=== PATIENT | female | born 2000 | race Caucasian/White ===

== ENCOUNTER 2018-06-30 13:56 | Emergency (ER) | payer OTHER, MEDICAID, SELFPAY ==
--- NOTE | 2018-06-30 13:57 | ED.ASTHMA ---
HPI - Asthma <RICHARD Cortez - Last Filed: 06/30/18 22:32> General Chief Complaint: Asthma Stated Complaint: ASTHMA ATTACK Time Seen by Provider: 06/30/18 13:57 Source: patient Mode of arrival: ambulatory Limitations: no limitations History of Present Illness HPI Narrative: 18-year-old female with history of asthma is an everyday smoker here for complaint of having increased wheezing over the past few days. She states she has had cold-like symptoms with some nasal congestion and sore throat which has increased her wheezing. She reports that she is out of her albuterol inhaler and also nebulizer treatment. She denies any shortness of breath. She denies any distress. No fevers or chills. She denies any other current complaints. MD complaint: asthma attack Related Data Previous Rx's Medication Instructions Recorded albuterol sulfate 3 ml INH SEE INSTRUCTIONS #1 box 06/30/18 albuterol sulfate [Ventolin HFA] 1 puff INHALATION Q4-6H PRN #30 day 06/30/18 Allergies Allergy/AdvReac Type Severity Reaction Status Date / Time morphine Allergy Mild ITCHING Verified 06/30/18 14:04 Review of Systems <RICHARD Cortez - Last Filed: 06/30/18 22:32> Constitutional Denies chills, Denies fever(s), Denies lethargy and Denies weakness Eyes Denies change in vision, Denies eye discharge, Denies irritation and Denies loss of vision ENT Ears, Nose, Mouth, and Throat: Denies change in voice, Denies neck pain, Denies sore throat and Denies throat swelling Cardiovascular Denies chest pain, Denies irregular heart rhythm, Denies lightheadedness, Denies palpitations and Denies orthopnea Respiratory Denies wheezing Comments: Wheezing Gastrointestinal Gastrointestinal: Denies abdominal pain, Denies change in bowel habits, Denies diarrhea, Denies nausea and Denies vomiting Genitourinary Denies hematuria, Denies flank pain, Denies urinary incontinence and Denies urinary urgency Musculoskeletal Denies neck pain Integumentary/Breasts Denies pruritus, Denies erythema, Denies rash and Denies wounds Neurologic Denies confusion, Denies loss of vision and Denies weakness Psychiatric Denies anxiety, Denies confusion, Denies depression, Denies homicidal ideation and Denies suicidal ideation Endocrine Denies palpitations Hematologic/Lymphatic Denies easy bruising Allergic/Immunologic Denies urticaria, Denies throat swelling and Denies wheezing Exam <RICHARD Cortez - Last Filed: 06/30/18 22:32> Initial Vital Signs Initial Vital Signs: Vital Signs Temperature 98.4 F 06/30/18 14:02 Pulse Rate 84 06/30/18 14:02 Respiratory Rate 20 06/30/18 14:02 Blood Pressure 118/74 06/30/18 14:02 Pulse Oximetry 100 06/30/18 14:02 Const General: cooperative and well developed Nutritional Appearance: well nourished Orientation: alert, awake, oriented x3 and not confused HENMT Ears: external ears normal and TM's normal bilaterally Mouth: oral mucosae normal, oropharynx normal and moist mucous membranes Eyes Conjunctivae: conjunctivae normal Sclera: sclerae normal Pupils: PERRL EOM: EOM intact bilaterally Resp Effort & Inspection: normal respiratory effort, able to speak in complete sentences, no respiratory distress and no use of accessory muscles Auscultation: clear to auscultation bilaterally, no rales, no rhonchi and wheezes inspiratory wheezes, lower bilaterally and upper bilaterally Cardio Rate: regular rate Rhythm: regular rhythm Heart Sounds: no click, no gallops, no murmurs and no rubs Skin General: no rashes or lesions noted, No jaundice and No petechiae Neuro General: alert, oriented x3, gait normal and no focal motor deficits Speech: speech normal <Micheline Rodríguez DO - Last Filed: 07/01/18 18:38> Initial Vital Signs Initial Vital Signs: Vital Signs Temperature 98.4 F 06/30/18 14:02 Pulse Rate 84 06/30/18 14:02 Respiratory Rate 20 06/30/18 14:02 Blood Pressure 118/74 06/30/18 14:02 Pulse Oximetry 100 06/30/18 14:02 Course <RICHARD Cortez - Last Filed: 06/30/18 22:32> Orders Ordered: Discontinued Medications Albuterol/Ipratropium (Duoneb) 3 ml INH NOW ONE Stop: 06/30/18 14:10 Last Admin: 06/30/18 14:25 Dose: 3 ml Vital Signs - 8 hr 06/30/18 14:02 Temperature 98.4 F Pulse Rate 84 Respiratory Rate 20 Blood Pressure 118/74 Pulse Oximetry 100 <Micheline Rodríguez DO - Last Filed: 07/01/18 18:38> Orders Ordered: Discontinued Medications Albuterol/Ipratropium (Duoneb) 3 ml INH NOW ONE Stop: 06/30/18 14:10 Last Admin: 06/30/18 14:25 Dose: 3 ml Vital Signs - 8 hr 06/30/18 14:02 Temperature 98.4 F Pulse Rate 84 Respiratory Rate 20 Blood Pressure 118/74 Pulse Oximetry 100 MDM - Asthma <Nadir BrightRICHARD white - Last Filed: 06/30/18 22:32> [facility] Narrative Medical decision making narrative: Sinus symptoms present as as a mild exacerbation secondary to a viral illness. She was given a DuoNeb treatment in the emergency room which helped her symptoms. She is in no acute distress. Her refills for albuterol inhaler and nebulizer treatment has been provided. Follow up with primary care provider. Return emergency room for any worsening symptoms. Discharge Plan Departure Patient Disposition: Home Clinical Impression: Asthma attack Discharge Date/Time: 06/30/18 14:58 Interventions: ED Discharge Assessment Last Done: 06/30/18 14:57 Instructions: DI for Asthma -- Adult Activity Restrictions/Additional Instructions: Signs and symptoms presents as asthma exacerbation secondary to a viral illness. You were given a nebulizer treatment in the emergency room which help with her wheezing. Refills for albuterol inhaler and nebulizers are placed use as directed. Follow up with her primary care provider. Return emergency room for any worsening symptoms. Prescriptions: Continue albuterol sulfate 2.5 MG/3 ML solution for nebulization 3 ml INH SEE INSTRUCTIONS Qty: 1 RF: 6 albuterol sulfate [Ventolin HFA] 90 mcg/actuation HFA aerosol inhaler 1 puff INHALATION Q4-6H PRN (Reason: asthma) Qty: 30 RF: 0 Referrals: Nicole Burden MD [Physician] - <Micheline Rodríguez DO - Last Filed: 07/01/18 18:38> Cosign ED Attending Cosignature Attestation: I was immediately available in the department for consultation. Documentation has been reviewed. I agree with assessment and plan.
[2018-06-30 14:02] VITALS: BP 118/74; PULSE 84; RESP 20; TEMP 36.9; O2SAT 100; BMI 25.3
[2018-06-30] MEDS: ALBUTEROL/IPRATROPIUM 3 ML AMPUL INH (14:25)
== END 2018-06-30 14:58 | disposition home or self-care (01) ==
PROVIDERS: Emergency Provider Nurse Practitioner Family
DX: J45.901 Unspecified asthma with (acute) exacerbation (principal)
CPT/HCPCS: 99282

== ENCOUNTER → 2018-07-08 16:29 | Outpatient (CLI) | payer OTHER, MEDICAID, SELFPAY ==
[2018-07-08 21:54] LABS: Urine N gonorrhoeae NOT DETECTED
[2018-07-08 21:55] LABS: Urine Chlamydia NOT DETECTED
== END ==
PROVIDERS: PCP Specialist; Visit Provider Specialist
DX: Z11.3 Encounter for screening for infections with a predominantly sexual mode of transmission (principal)
CPT/HCPCS: 87491; 87591

== ENCOUNTER → 2018-12-14 16:35 | Outpatient (CLI) | payer OTHER, MEDICAID, SELFPAY | PROVIDERS: PCP Physician Assistant; Visit Provider Nurse Practitioner | DX: L98.9 Disorder of the skin and subcutaneous tissue, unspecified (principal) | CPT/HCPCS: 87252 ==

== ENCOUNTER → 2019-02-23 16:38 | Outpatient (CLI) | payer OTHER, MEDICAID, SELFPAY | PROVIDERS: PCP Physician Assistant; Visit Provider Physician Assistant | DX: R30.0 Dysuria (principal); R39.15 Urgency of urination | CPT/HCPCS: 87086 ==

== ENCOUNTER 2019-05-31 23:21 | Emergency (ER) | payer OTHER, MEDICAID, SELFPAY ==
[2019-05-31] MEDS: ALBUTEROL/IPRATROPIUM 3 ML AMPUL INH (23:33)
[2019-05-31 23:37] VITALS: BP 133/88; PULSE 93; RESP 18; TEMP 36.6; O2SAT 98
[2019-05-31 23:38] VITALS: BP 112/95; PULSE 93; RESP 18; TEMP 36.6; O2SAT 98
[2019-05-31] MEDS: predniSONE 20 MG TABLET 40 MG PO (23:47)
[2019-05-31] MEDS: ALBUTEROL HFA PREPACK 1 BOX MISC (23:47)
--- NOTE | 2019-05-31 23:49 | DI.RAD.S_ITS ---
PROCEDURE: XR CHEST 2V INDICATIONS: Shortness of breath, cough TECHNIQUE: 2 views of the chest were acquired. COMPARISON: [facility], CHEST 1 VIEW, 08/03/2016, 10:11. [facility], , CHEST 2 VIEW, 08/01/2016, 10:04. FINDINGS: Surgical changes and devices: None. Lungs and pleura: No focal consolidation, effusion, or pneumothorax is evident. Mediastinum: Mediastinal contours are normal. Heart size is normal. Bones and chest wall: No suspicious bony abnormalities. Soft tissues appear unremarkable. IMPRESSION: No acute cardiopulmonary process is evident. Note: The preliminary ED physician interpretation and the final report are concordant. Dictated by: Porfirio Ross M.D. on 06/01/2019 at 8:23 Approved by: Porfirio Ross M.D. on 06/01/2019 at 8:25
[2019-05-31] MEDS: ALBUTEROL 2.5 MG/3 ML NEB (ADULT) INH (23:55)
[2019-06-01] MEDS: ALBUTEROL 2.5 MG/3 ML NEB (ADULT) INH ×2 (00:04→00:12)
[2019-06-01 00:17] VITALS: BP 122/66; PULSE 110; O2SAT 92
[2019-06-01 01:15] VITALS: BP 127/77; PULSE 108; RESP 20; O2SAT 96
[2019-06-01] MEDS: DOXYCYCLINE HYCLATE 100 MG TABLET PO (01:21)
--- NOTE | 2019-06-01 01:32 | ED.ASTHMA ---
HPI - Asthma General Chief Complaint: Asthma Stated Complaint: states having asthma attack Time Seen by Provider: 05/31/19 23:25 Source: patient Mode of arrival: Ambulatory Limitations: no limitations History of Present Illness HPI Narrative: 19-year-old female smoker extensive history of asthma presents with her significant other in the chief complaint of ongoing wheezing and no access to her asthma medications. She uses albuterol and Advair at home but was visiting locally and did not bring her inhaler. She has all the med she needs at. She has had some upper respiratory complaints including cough which seemed to be triggering things over the past few days. She denies fever or chills nor nausea or vomiting MD complaint: asthma attack Onset (ago): day(s) Severity: moderate Context: recent URI Associated symptoms: dry cough Asthma History: childhood onset Treatments Prior to Arrival: inhaled bronchodilator and inhaled steroid Related Data Current Asthma Therapy: inhaled bronchodilator Home Medications Medication Instructions Recorded Confirmed albuterol sulfate 2.5 mg INHALATION Q4-6H PRN 02/23/19 02/23/19 Previous Rx's Medication Instructions Recorded levonorgestrel 0.15 mg-ethinyl 1 tab PO DAILY #28 tab 07/08/18 estradiol 0.03 mg tablet Spacer for inhaler #1 ea 12/01/18 fluticasone propionate-salmeterol 2 puff INHALATION BID #12 gram 12/01/18 45 mcg-21 mcg/actuation HFA inhaler montelukast 10 mg tablet 10 mg PO QPM #30 tab 12/01/18 valacyclovir 1 gram tablet 1,000 mg PO BID #20 tab 12/14/18 nitrofurantoin 100 mg PO Q12H #20 cap 02/23/19 monohydrate/macrocrystals 100 mg capsule albuterol sulfate 90 mcg/actuation See Rx Instructions .ROUTE 04/21/19 aerosol inhaler .COMPLEX #17 gram doxycycline monohydrate 100 mg PO BID 10 Days #20 cap 06/01/19 prednisone 20 mg PO DAILY #5 tab 06/01/19 Allergies Allergy/AdvReac Type Severity Reaction Status Date / Time morphine Allergy Intermediate Hives, Verified 02/23/19 16:45 itching Review of Systems Constitutional Constitutional: Denies chills, Denies fatigue, Denies fever(s), Denies frequent falls, Denies lethargy and Denies weakness Eyes Eyes: Denies change in vision, Denies eye discharge, Denies irritation and Denies loss of vision ENT Ears, Nose, Mouth, and Throat: Denies change in voice, Denies dizziness, Denies neck pain, Denies sore throat and Denies throat swelling Cardiovascular Cardiovascular: Denies chest pain, Denies irregular heart rhythm, Denies lightheadedness, Denies palpitations, Reports dyspnea, Denies dyspnea on exertion and Denies orthopnea Respiratory Respiratory: Reports cough, Reports dyspnea, Denies dyspnea on exertion and Reports wheezing Gastrointestinal Gastrointestinal: Denies abdominal pain, Denies change in bowel habits, Denies diarrhea, Denies nausea and Denies vomiting Genitourinary Genitourinary: Denies hematuria, Denies flank pain, Denies urinary incontinence and Denies urinary urgency Musculoskeletal Musculoskeletal: Denies back pain, Denies muscle weakness, Denies neck pain, Denies numbness and Denies tingling Integumentary/Breasts Skin/Breast: Denies pruritus, Denies erythema, Denies rash and Denies wounds Neurologic Neurologic: Denies behavioral changes, Denies confusion, Denies dizziness, Denies frequent falls, Denies loss of vision, Denies numbness, Denies tingling and Denies weakness Psychiatric Psychiatric: Denies anxiety, Denies behavioral changes, Denies confusion, Denies depression, Denies homicidal ideation and Denies suicidal ideation Endocrine Endocrine: Denies fatigue, Denies flushing and Denies palpitations Hematologic/Lymphatic Hematologic/Lymphatic: Denies easy bruising Allergic/Immunologic Allergic/Immunologic: Denies urticaria, Denies throat swelling and Reports wheezing Patient History Medical History Asthma (Chronic) Surgical History Status post surgery (06/03/15) Vaginal delivery (Resolved) Social History Smoking Status: Current every day smoker Tobacco: How many years used: 8 second hand exposure: Yes alcohol intake: former (I used to, but I haven't drank since after I had my daughter. She'll be 4 this year. ) substance use type: does not use alcohol intake frequency: 0-2 drinks per day Substance Use Type: does not use Exam Narrative Exam Narrative: GENERAL: [19] year old patient appears stated age. Well-nourished, well-developed patient, in mild distress. HEAD: Atraumatic. Normocephalic. EYES: Pupils equal round and reactive. Extraocular motions intact. No scleral icterus. No injection or drainage. ENT: Poor dentition throughout Nose without bleeding, purulent drainage. Throat without erythema, tonsillar hypertrophy or exudate. Airway patent. NECK: Trachea midline. Non tender CARDIOVASCULAR: Regular rate and rhythm without murmurs, gallops, or rubs. RESPIRATORY: Wheezing in all andrews, some increased work of breathing as demonstrated by the use of accessory muscles GASTROINTESTINAL: Abdomen soft, non-tender, nondistended. EXTREMITIES: No edema or joint tenderness. BACK: Nontender without deformity or crepitance. No flank tenderness. NEURO: AOx3. SKIN: No rash or erythema of visible areas Initial Vital Signs Initial Vital Signs: Vital Signs Temperature 97.8 F 05/31/19 23:37 Pulse Rate 93 H 05/31/19 23:37 Respiratory Rate 18 05/31/19 23:37 Blood Pressure 133/88 05/31/19 23:37 Pulse Oximetry 98 05/31/19 23:37 Course Orders Ordered: ED Orders 05/31/19 23:49 XR chest 2V Stat Discontinued Medications Albuterol (Ventolin Hfa Prepack) 1 box MISC SEEINSTR ONE Stop: 05/31/19 23:44 Last Admin: 05/31/19 23:47 Dose: 1 box Documented by: RAFAEL Albuterol (Ventolin) 2.5 mg INH NOW ONE Stop: 05/31/19 23:55 Last Admin: 05/31/19 23:55 Dose: 2.5 mg Documented by: JORGE Albuterol (Ventolin) 2.5 mg INH NOW ONE Stop: 06/01/19 00:04 Last Admin: 06/01/19 00:04 Dose: 2.5 mg Documented by: JORGE Albuterol (Ventolin) 2.5 mg INH NOW ONE Stop: 06/01/19 00:11 Last Admin: 06/01/19 00:12 Dose: 2.5 mg Documented by: JORGE Albuterol/Ipratropium (Duoneb) 3 ml INH NOW ONE Stop: 05/31/19 23:26 Last Admin: 05/31/19 23:33 Dose: 3 ml Documented by: RAFAEL Doxycycline Hyclate (Vibramycin) 100 mg PO NOW ONE Stop: 06/01/19 01:15 Last Admin: 06/01/19 01:21 Dose: 100 mg Documented by: RAFAEL Prednisone (Deltasone) 40 mg PO NOW ONE Stop: 05/31/19 23:45 Last Admin: 05/31/19 23:47 Dose: 40 mg Documented by: RAFAEL Vital Signs Vital signs: Vital Signs - 8 hr 05/31/19 23:37 05/31/19 23:38 06/01/19 00:17 Temperature 97.8 F 97.8 F Pulse Rate 93 H 93 H 110 H Respiratory Rate 18 18 Blood Pressure 112/95 H Blood Pressure [Left Arm] 133/88 122/66 Pulse Oximetry 98 98 92 MDM - Asthma Differential Diagnosis Differential diagnosis: Likely Acute exacerbation Imaging Data Chest x-ray: Attestation: I personally reviewed and interpreted this imaging study as follows: My impression: No acute process MDM Narrative Medical decision making narrative: 19-year-old female with extensive asthma history presents with wheezing in all andrews. She has had DuoNeb a multi bronchodilators and definitely has improvement in her symptoms. She has resting pulse ox in the mid 90s and is fully conversive. Chest x-ray shows no pneumonia. Return precautions given, questions answered to her apparent satisfaction Discharge Plan Departure Patient Disposition: Home Clinical Impression: Acute respiratory distress, Atypical pneumonia Asthma attack Qualifiers: Asthma severity: moderate Asthma persistence: persistent Qualified Code(s): J45.41 - Moderate persistent asthma with (acute) exacerbation Activity Restrictions/Additional Instructions: *You have been diagnosed with [asthma exacerbation, atypical pneumonia] *What to do: *Take medications as directed: prescriptions sent to [facility] at your request *Follow up with your primary care provider in 2-3 days, call for an appointment. Let them know you were seen in the Emergency Department and that we ask that you be seen in follow up *Return to ER if you should have any new, worsening or concerning symptoms Prescriptions: New prednisone 20 mg tablet 20 mg PO DAILY Qty: 5 RF: 0 doxycycline monohydrate 100 mg capsule 100 mg PO BID 10 Days Qty: 20 RF: 0 No Action albuterol sulfate 90 mcg/actuation HFA aerosol inhaler See Rx Instructions .ROUTE .COMPLEX Qty: 17 RF: 3 levonorgestrel-ethinyl estrad 0.15-0.03 mg tablet 1 tab PO DAILY Qty: 28 RF: 11 valacyclovir 1 gram tablet 1,000 mg PO BID Qty: 20 RF: 1 montelukast 10 mg tablet 10 mg PO QPM Qty: 30 RF: 1 Advair HFA 45-21 mcg/actuation HFA aerosol inhaler 2 puff INHALATION BID Qty: 12 RF: 1 (DME) Spacer for inhaler Qty: 1 RF: 0 albuterol sulfate 2.5 mg /3 mL (0.083 %) solution for nebulization 2.5 mg INHALATION Q4-6H PRNRF: 0 nitrofurantoin monohyd/m-cryst 100 mg capsule 100 mg PO Q12H Qty: 20 RF: 0 Referrals: Clau Akins PA-C [Primary Care Provider] -
[2019-06-01 02:01] VITALS: BP 131/80; PULSE 99; RESP 21; O2SAT 96
== END 2019-06-01 02:00 | disposition home or self-care (01) ==
PROVIDERS: Emergency Provider Emergency Medicine; PCP Physician Assistant
DX: R06.03 Acute respiratory distress (principal); J18.9 Pneumonia, unspecified organism; J45.41 Moderate persistent asthma with (acute) exacerbation
CPT/HCPCS: 71046; 94640; 99283; 99284; J7613

== ENCOUNTER 2019-07-24 11:32 | Emergency (ER) | payer OTHER, MEDICAID, SELFPAY ==
[2019-07-24 11:34] VITALS: BP 116/73; PULSE 83; RESP 22; TEMP 36.6; O2SAT 98; BMI 24.3
--- NOTE | 2019-07-24 12:12 | ED.FEMALEGU ---
HPI - Female Genitourinary <RICHARD Arnold - Last Filed: 07/24/19 12:19> General Chief complaint: Urogenital-Female Stated complaint: poss UTI Time Seen by Provider: 07/24/19 11:53 Source: patient Mode of arrival: Ambulatory Limitations: no limitations History of Present Illness HPI Narrative: This is a 19-year-old female, smoker, who presents to ED with a dysuria for 2 days. Patient reports every time she urinates her perineum area hurts and noticed light bleeding when she wipes. Patient denies fever, chills, nausea, vomiting, flank pain or suprapubic pain. Patient states her significant other noticed to small white bumps in her perineum area which has resolved today. Patient denies unusual vaginal discharge or pelvic pain. Patient reports she has wet cloth on perineum area last night during sleep to help with discomfort. Patient reports is not concerned for STIs. Last LMP 06/22/19 and is currently taking control pill. Related Data Home Medications Medication Instructions Recorded Confirmed albuterol sulfate 2.5 mg INHALATION Q4-6H PRN 02/23/19 02/23/19 Previous Rx's Medication Instructions Recorded levonorgestrel 0.15 mg-ethinyl 1 tab PO DAILY #28 tab 07/08/18 estradiol 0.03 mg tablet Spacer for inhaler #1 ea 12/01/18 fluticasone propionate-salmeterol 2 puff INHALATION BID #12 gram 12/01/18 45 mcg-21 mcg/actuation HFA inhaler montelukast 10 mg tablet 10 mg PO QPM #30 tab 12/01/18 valacyclovir 1 gram tablet 1,000 mg PO BID #20 tab 12/14/18 nitrofurantoin 100 mg PO Q12H #20 cap 02/23/19 monohydrate/macrocrystals 100 mg capsule albuterol sulfate 90 mcg/actuation See Rx Instructions .ROUTE 04/21/19 aerosol inhaler .COMPLEX #17 gram prednisone 20 mg PO DAILY #5 tab 06/01/19 phenazopyridine [Pyridium] 100 mg PO Q8H #10 tab 07/24/19 Allergies Allergy/AdvReac Type Severity Reaction Status Date / Time morphine Allergy Intermediate Hives, Verified 02/23/19 16:45 itching Review of Systems <GHULAM ArnoldP - Last Filed: 07/24/19 12:19> Review of Systems Narrative: General: Denies fever, chills, fatigue, malaise, sweats. HEENT: Denies sinus pain, ear pain, sore throat, difficulty swallowing, dizziness. Respiratory: Denies dyspnea, cough, wheezing, hemoptysis, sputum. Cardiovascular: Denies chest pain, palpitations, orthopnea, edema. Gastrointestinal: Denies nausea, vomiting, abdominal pain, diarrhea, constipation, melena. : See HPI Musculoskeletal: Denies weakness, joint pain or bony pain. Skin: Denies rash, skin lesions, or other. Neurologic: Denies weakness, headache, numbness, change in speech, confusion, seizures, incoordination. Psychiatric: No concerning psychosocial issues. 12-point review of systems is negative except for those stated above. Patient History <Geo Mone [facility] Last Filed: 07/24/19 12:19> Smoking Status: Current every day smoker alcohol intake frequency: a few times a week Alcohol type: beer Substance Use Type: marijuana Exam [facility] Filed: 07/24/19 12:19> Narrative Exam Narrative: GEN: Alert, oriented x 3, well appearing and nourished, and in no acute distress. Head: Normal cephalic, atraumatic. No scalp or temporal tenderness, palpable mass or rash. EYES: Pupils are equal, round, and reactive to light and accommodation. Extraocular muscles are intact bilaterally. There is no subconjunctival hemorrhage, exudate and sclera non-icteric. ENT: Bilateral auditory canals and tympanic membranes clear. Hearing grossly intact. Nose without bleeding, purulent discharge or deviation. Facial sinuses nontender to palpate. Mucous membrane moist, no mucosal lesion. Throat without erythema, tonsillar hypertrophy or exudate. Uvula in midline, airway patent. Neck: Trachea in midline. No JVD, non-tender without lymphadenopathy. No masses or thyroid megaly. Supple, non-tender and no meningeal signs. CARDIAC: Normal regular rate and rhythm without murmurs, gallops, or rubs. No chest wall tenderness. No peripheral edema, cyanosis or pallor. Capillary refill is less than 2 seconds. RESPIRATORY: Lungs are clear to auscultate bilaterally. No cough, wheezes, rales, or rhonchi. No stridor, respiratory distress, increase work of breathing, or accessary muscle used. ABD: Abdomen soft, nontender and non-distended. No guarding or rebound tenderness to palpate. Bowel sounds are normal in all 4 quadrants. There is no palpable masses or organomegaly. EXT: Full painless ROM of all extremities with no loss of sensation, strength, effusion or edema. SKIN: Warm, dry, normal color for patient. No erythema, lesions or rash over visible areas. BACK: Nontender without deformity or crepitance. No flank tenderness. NEUROLOGICAL: Alert and oriented to place, time and person. Sensation and motor function intact bilaterally. No facial droops, dysphasia. PSYCHIATRIC: Good judgement and reason, without hallucinations, abnormal affect or abnormal behaviors during the examination. Patient is not suicidal. Initial Vital Signs Initial Vital Signs: Vital Signs Temperature 97.9 F 07/24/19 11:34 Pulse Rate 83 07/24/19 11:34 Respiratory Rate 22 07/24/19 11:34 Blood Pressure 116/73 07/24/19 11:34 Pulse Oximetry 98 07/24/19 11:34 External Female Exam: external appearance normal, normal appearance of the urethra, externally tender bilaterally, no external swelling and no lesions <Micheline Rodríguez DO - Last Filed: 07/25/19 07:34> Initial Vital Signs Initial Vital Signs: Vital Signs Temperature 97.9 F 07/24/19 11:34 Pulse Rate 83 07/24/19 11:34 Respiratory Rate 22 07/24/19 11:34 Blood Pressure 116/73 07/24/19 11:34 Pulse Oximetry 98 07/24/19 11:34 Scores <RICHARD Arnodl - Last Filed: 07/24/19 12:19> GCS [place] coma scale eye opening: Spontaneous [place] coma scale verbal response: Orientated [place] coma scale motor response: Obey commands [place] coma scale total score: 15 Course <RICHARD Arnold - Last Filed: 07/24/19 12:19> Vital Signs Vital signs: Vital Signs - 8 hr 07/24/19 11:34 Temperature 97.9 F Pulse Rate 83 Respiratory Rate 22 Blood Pressure 116/73 Pulse Oximetry 98 <Micheline Rodríguez DO - Last Filed: 07/25/19 07:34> Vital Signs Vital signs: Vital Signs - 8 hr 07/24/19 11:34 Temperature 97.9 F Pulse Rate 83 Respiratory Rate 22 Blood Pressure 116/73 Pulse Oximetry 98 MDM - Female Genitourinary <RICHARD Arnold - Last Filed: 07/24/19 12:19> Differential Diagnosis Differential diagnosis: Likely urinary tract infection, cystitis and other (HSV) Medical Records Attestation: I reviewed the patient's medical records. Lab Data Attestation: I reviewed the patient's lab results. Labs: Point of Care Testing Test Results Negative Urine Dip Bedside Urine Glucose Negative Bedside Urine Bilirubin - Negative Bedside Urine Ketone - Negative Urine Specific [place] 1.005 Bedside Urine Occult Blood - Negative Bedside Urine pH 7.5 Bedside Urine Protein - Negative Bedside Urine Urobilinogen - Negative Bedside Urine Nitrite - Negative Bedside Urine Leukocytes - Negative Esterase MDM Narrative Medical decision making narrative: This is a 19-year-old female who presents to ED with dysuria and light pink when she wiped after voiding for 2 days. She does not endorses constitutional symptoms, negative CVA tenderness or suprapubic pain by palpation. Physical exam on perineum area is not consistent with HSV infection. UA test was negative for infection. U hCG was negative today. Patient advised to increase oral water hydration and use Pyridium as needed for discomfort and precautions for yellow discoloring of urine discussed. Patient also advised to use [id number] Tylenol and or Motrin as needed. Return precautions were discussed with the patient and patient agrees with treatment plan and verbalized understanding. <Micheline Rodríguez DO - Last Filed: 07/25/19 07:34> Lab Data Labs: Point of Care Testing Test Results Negative Urine Dip Bedside Urine Glucose Negative Bedside Urine Bilirubin - Negative Bedside Urine Ketone - Negative Urine Specific [place] 1.005 Bedside Urine Occult Blood - Negative Bedside Urine pH 7.5 Bedside Urine Protein - Negative Bedside Urine Urobilinogen - Negative Bedside Urine Nitrite - Negative Bedside Urine Leukocytes - Negative Esterase Discharge Plan Departure Patient Disposition: Home Clinical Impression: Dysuria Discharge Date/Time: 07/24/19 12:18 Instructions: DI for Dysuria -- Adult Activity Restrictions/Additional Instructions: You have been diagnosed with [discomfort with urination. Urine test today was negative for infection and test was negative as well. There was no skin lesions in her perineum area either.]. What to do: *Take your medications as directed. You can take Pyridium as needed for discomfort. This will numb the urinary track and bladder and help with discomfort. You can also take [id number] Tylenol and or Motrin as needed for discomfort. Increase water hydration and avoid taking excessive amount of energy drink. You can rinse perineum area with warm water during urination or after the urination to help with discomfort. *Follow up with your primary care provider in 2-3 days, call for an appointment. Let them know you were seen in the ED and that we asked you to be seen in follow up. *Return to ED if you have any new, worsening, or concerning symptoms, such as [fever, abdominal pain, unable to tolerate fluids, chest pain, breathing difficulty or any acute concerns]. Prescriptions: New phenazopyridine [Pyridium] 100 mg tablet 100 mg PO Q8H Qty: 10 RF: 0 No Action albuterol sulfate 90 mcg/actuation HFA aerosol inhaler See Rx Instructions .ROUTE .COMPLEX Qty: 17 RF: 3 levonorgestrel-ethinyl estrad 0.15-0.03 mg tablet 1 tab PO DAILY Qty: 28 RF: 11 valacyclovir 1 gram tablet 1,000 mg PO BID Qty: 20 RF: 1 montelukast 10 mg tablet 10 mg PO QPM Qty: 30 RF: 1 Advair HFA 45-21 mcg/actuation HFA aerosol inhaler 2 puff INHALATION BID Qty: 12 RF: 1 (DME) Spacer for inhaler Qty: 1 RF: 0 albuterol sulfate 2.5 mg /3 mL (0.083 %) solution for nebulization 2.5 mg INHALATION Q4-6H PRNRF: 0 nitrofurantoin monohyd/m-cryst 100 mg capsule 100 mg PO Q12H Qty: 20 RF: 0 prednisone 20 mg tablet 20 mg PO DAILY Qty: 5 RF: 0 Referrals: Clau Akins PA-C [Primary Care Provider] -
== END 2019-07-24 12:18 | disposition home or self-care (01) ==
PROVIDERS: Emergency Provider Nurse Practitioner Family; PCP Physician Assistant
DX: R30.0 Dysuria (principal)
CPT/HCPCS: 81003; 81025; 99282

== ENCOUNTER → 2021-02-11 11:25 | Outpatient (CLI) | payer OTHER, MEDICAID, SELFPAY | PROVIDERS: PCP Nurse Practitioner Family; Visit Provider Registered Nurse | DX: R30.0 Dysuria (principal) | CPT/HCPCS: 87077; 87086; 87186 ==